=== PATIENT | male | born 1925 | race Hispanic/Latino ===

== ENCOUNTER 2016-12-02 14:07 | Inpatient (IN) | payer BC, MEDICARE ==
--- NOTE | 2016-12-02 14:46 | ED PDOC ---
Arrival/HPI - General Chief Complaint: Lower Extremity Problem/Injury Time Seen by Provider: 12/02/16 14:25 Historian: Patient, Family - History of Present Illness Narrative History of Present Illness (Text): 12/02/16 14:46 A 89 year old male, whose past medical history includes dementia, 'clotting disorder' on eliquis and hypertension, presents to the emergency department complaining of bilateral lower extremity swelling. Patient notes difficulty ambulating due to swelling. Family reports patients baseline consists of dyspnea on exertion. Patient denies any fever, chills, nausea, vomiting, abdominal pain, chest pain or any other complaints. Past Medical History - Provider Review Nursing Documentation Reviewed: Yes - Infectious Disease Hx of Infectious Diseases: None - Cardiac Hx Hypertension: Yes - Pulmonary Hx Pneumonia: Yes - Neurological Hx Dementia: Yes - HEENT Hx HEENT Disorder: Yes - Renal Hx Renal Disorder: No - Endocrine/Metabolic Hx Diabetes Mellitus Type 2: Yes - Hematological/Oncological Hx Blood Transfusions: No Hx Blood Transfusion Reaction: (N/A) - Integumentary Hx Dermatological Disorder: Yes (Skin CA) - Musculoskeletal/Rheumatological Hx Falls: Yes Other/Comment: DVT - Gastrointestinal HX Swallowing Problems: Yes - Genitourinary/Gynecological Hx Reproductive Disorders: No - Psychiatric Hx Depression: Yes Hx Physical Abuse: No Hx Substance Use: No - Surgical History Other/Comment: 2 herniated discs removed 50 yrs ago, lumbar laminectomy, CORRECTED SWALLOWING PROBLEM - Anesthesia Hx Anesthesia: No Hx Anesthesia Reactions: No Hx Malignant Hyperthermia: No - Suicidal Assessment Feels Threatened In Home Enviroment: No Family/Social History - Physician Review Nursing Documentation Reviewed: Yes Family/Social History: No Known Family HX Smoking Status: Never Smoked Hx Alcohol Use: No Hx Substance Use: No Allergies/Home Meds Allergies/Adverse Reactions: Allergies No Known Allergies Allergy (Verified 12/02/16 14:09) Home Medications: Home Meds Medication Instructions Recorded Confirmed Fluoxetine HCl 40 mg PO DAILY 08/01/14 12/02/16 buPROPion SR [Wellbutrin SR 150 MG] 300 mg PO DAILY 08/01/14 12/02/16 Apixaban [Eliquis] 2.5 mg PO BID 12/02/16 12/02/16 Donepezil [Aricept] 5 mg PO DAILY 12/02/16 12/02/16 Glipizide [Glucotrol] 10 mg PO DAILY 12/02/16 12/02/16 Pioglitazone [Actos] 15 mg PO DAILY 12/02/16 12/02/16 Pregabalin [Lyrica] 50 mg PO BID 12/02/16 12/02/16 risperiDONE [RisperDAL Tab] 1 ng PO HS 12/02/16 12/02/16 Physical Exam - Physical Exam Narrative Physical Exam (Text): - Review of Systems Constitutional: Normal. absent: Fatigue, Weight Change, Fevers Eyes: Normal ENT: denies sore throat, denies tristhmus Respiratory: (+) WINKLER absent: Cough, Sputum Cardiovascular: absent: Chest Pain, Palpitations, Syncope Gastrointestinal: Normal. absent: Abdominal Pain, Diarrhea, Nausea, Vomiting Genitourinary: Normal. absent: Dysuria, Frequency, Hematuria Musculoskeletal: (+) Bilateral lower extremity swelling absent: Arthralgias, Back Pain, Neck Pain Skin: no rashes, no erythema Neurological: absent: Focal Weakness Endocrine: Normal Hemo/Lymphatic: Normal Psychiatric: No suicidal or homicidal ideations Physical exam Patient appears age appropriate in no distress, speaking full sentences without difficulty - Systems Exam Head: Present: Atraumatic, Normocephalic Pupils: Present: PERRL Extroacular Muscles: Present: EOMI Conjunctiva: Present: Normal Mouth: Present: Moist Mucous Membranes Neck: Present: Normal Range of Motion. No: MIDLINE TENDERNESS, Paraspinal Tenderness Respiratory/Chest: Present: Clear to Auscultation, Good Air Exchange. No: Respiratory Distress, Accessory Muscle Use, Tachypneic Cardiovascular: Present: Regular Rate and Rhythm, Normal S1, S2, Peripheal Pulses Present. No: Murmurs Abdomen: Present: Normal Bowel Sounds. No: Tenderness, Distention, Peritoneal Signs, Rebound, Guarding Back: Present: Normal Inspection. No: Midline Tenderness, Paraspinal Tenderness Upper Extremity: Present: Normal Inspection. No: Cyanosis, Edema Lower Extremity: Present: Bilateral +2 pitting edema, Good capillary refill, Good color No: Asymmetry, Tenderness Neurological: Present: GCS=15, Speech Normal, cranial nerves II through XII fully intact with no cerebellar abnormality, neurosensory fully intact. No focal neurological deficits. Skin: Present: Warm, Dry, Normal Color. No: Rashes Lymphatic: Present: OX3, NI, NC Psychiatric: Present: Alert, not anxious Vital Signs Reviewed: Yes Vital Signs Temp Pulse Resp BP Pulse Ox 12/02/16 14:15 98.2 F 81 16 121/71 95 Temperature: Afebrile Blood Pressure: Normal Pulse: Regular Respiratory Rate: Normal Appearance: Positive for: Well-Appearing, Non-Toxic, Comfortable Pain Distress: None Mental Status: Positive for: Alert and Oriented X 3 Medical Decision Making ED Course and Treatment: 12/02/16 14:46 Impression: A 89 year old male with bilateral lower extremity swelling. Family report chronic dyspnea on exertion. On exam, +2 pitting edema bilaterally with good pulses and color, no asymmetry or tenderness. Differential Diagnosis included but are not limited to: Peripheral vascular disease vs. CHF vs. Renal disease Plan: -- Chest xray -- Duplex lower extremity ultrasound -- Labs -- Reassess and disposition Progress Notes: 12/02/16 17:31 Patient's creatinine normal, BNP unremarkable, x-ray with no acute findings as per radiology read. Discussed with electronics warfare technician, she states that patient has no acute DVTs, however he has chronic DVTs which are much better appearance than before. pt states he is concerned that he is unable to ambulate. Patient's primary physician Dr. Elizondo paged by me, awaiting callback 12/02/16 17:[address] Elizondo in detail, accepted admission to his service (Dr. Fritz's), for inability to walk. Also with Dr. Mahas Oliveira on consult. pt aware of and agrees with plan 12/02/16 18:02 kristopher Tessa, pt's daughter, aware of plan, states will tell family - Lab Interpretations Lab Results: 12/02/16 14:45 12/02/16 14:45 Lab Results 12/02/16 14:45: PT 11.3, INR 1.05, APTT 24.9 12/02/16 14:45: Sodium 140, Potassium 4.7, Chloride 101, Carbon Dioxide 27, Anion Gap 17, BUN 19, Creatinine 0.9, Est GFR ( Amer) > 60, Est GFR (Non- Af Amer) > 60, Random Glucose 253 H, Calcium 9.4, Total Bilirubin 0.7, AST 30, ALT 24, Alkaline Phosphatase 68, NT-Pro-B Natriuret Pep 375, Total Protein 6.6, Albumin 4.0, Globulin 2.6, Albumin/Globulin Ratio 1.5 12/02/16 14:45: WBC 7.1, RBC 4.33, Hgb 14.1, Hct 41.9 L, MCV 96.8, MCH 32.6, MCHC 33.7, RDW 12.5, Plt Count 141, MPV 9.7, Gran % 72.4 H, Lymph % (Auto) 17.7 L, Scott % (Auto) 4.8, Eos % (Auto) 4.8, Baso % (Auto) 0.3, Gran # 5.11, Lymph # 1.3, Scott # 0.3, Eos # 0.3, Baso # 0.02 I have reviewed the lab results: Yes - RAD Interpretation Radiology Orders: 12/02/16 14:47 CHEST PORTABLE [RAD] Stat DUPLEX LOWER EXTRM VEIN BILAT [US] Stat - Scribe Statement The provider has reviewed the documentation as recorded by the Scribe Radha Simon Provider Scribe Attestation: All medical record entries made by the Scribe were at my direction and personally dictated by me. I have reviewed the chart and agree that the record accurately reflects my personal performance of the history, physical exam, medical decision making, and the department course for this patient. I have also personally directed, reviewed, and agree with the discharge instructions and disposition. Disposition/Present on Arrival - Present on Arrival Any Indicators Present on Arrival: Yes History of DVT/PE: Yes History of Uncontrolled Diabetes: Yes Urinary Catheter: No History of Decub. Ulcer: No History Surgical Site Infection Following: None - Disposition Have Diagnosis and Disposition been Completed?: Yes Diagnosis: Ambulatory dysfunction Disposition: HOSPITALIZED Disposition Time: 17:55 Patient Plan: Admission Condition: FAIR Referrals: Reese Stone JD, MD [Primary Care Provider] - Follow up with primary Forms: [employer] (Maltese)
[2016-12-02 15:06] LABS: BASO # 0.02 K/mm3 (0.0-2.0); BASO % 0.3 % (0.0-3.0); EOS # 0.3 (0.0-0.7); EOS % 4.8 % (1.5-5.0); GRAN # 5.11 (1.4-6.5); GRAN % 72.4 % (50.0-68.0); HEMATOCRIT 41.9 % (42.0-52.0); LYMPH # 1.3 (1.2-3.4); LYMPH % 17.7 % (22.0-35.0); MEAN CELL VOLUME 96.8 fl (80.0-105.0); MEAN CORPUSCULAR HEMOGLOBIN 32.6 pg (25.0-35.0); MEAN CORPUSCULAR HGB CONC 33.7 g/dl (31.0-37.0); MEAN PLATELET VOLUME 9.7 fl (7.0-11.0); MONO # 0.3 (0.1-0.6); MONO % 4.8 % (1.0-6.0); RED CELL DISTRIBUTION WIDTH 12.5 % (11.5-14.5); WHITE BLOOD COUNT 7.1 10^3/ul (4.5-11.0)
[2016-12-02 15:15] LABS: INR 1.05 (0.93-1.08); PARTIAL THROMBOPLASTIN TIME 24.9 Seconds (23.7-30.8)
[2016-12-02 15:21] LABS: ALB/GLOB RATIO 1.5 (1.1-1.8); ALKALINE PHOSPHATASE 68 U/L (38-126); ALT/SGPT 24 U/L (7-56); AST/SGOT 30 U/L (17-59); BILIRUBIN,TOTAL 0.7 mg/dL (0.2-1.3); BLOOD UREA NITROGEN 19 mg/dL (7-21); CALCIUM 9.4 mg/dL (8.4-10.5); CARBON DIOXIDE 27 mmol/L (21-33); CHLORIDE 101 mmol/L (98-107); GFR AFRICAN-AMERICAN > 60; GLUCOSE,RANDOM 253 mg/dL (70-110); POTASSIUM 4.7 mmol/L (3.6-5.0); SODIUM 140 mmol/L (132-148); TOTAL PROTEIN 6.6 g/dL (5.8-8.3)
--- NOTE | 2016-12-02 20:01 | RAD ---
HISTORY: cough COMPARISON: No prior. FINDINGS: LUNGS: No active pulmonary disease. PLEURA: No significant pleural effusion identified, no pneumothorax apparent. CARDIOVASCULAR: Normal. Mild aortic tortuosity OSSEOUS STRUCTURES: No significant abnormalities. VISUALIZED UPPER ABDOMEN: Normal. OTHER FINDINGS: None. IMPRESSION: No active disease.
--- NOTE | 2016-12-02 20:02 | US ---
PROCEDURE: Bilateral lower extremity venous duplex Doppler. HISTORY: r/o DVT COMPARISON: 08/15/2016. TECHNIQUE: Bilateral common femoral, superficial femoral, popliteal and posterior tibial veins were evaluated. Flow was assessed with color Doppler, compressibility, assessment of phasic flow and augmentation response. FINDINGS: COMMON FEMORAL VEIN: Right CFV: Unremarkable. Left CFV: There is a chronic nonocclusive thrombus. SUPERFICIAL FEMORAL VEIN: Right SFV: Unremarkable. Left SFV: There is a chronic nonocclusive thrombus. POPLITEAL VEIN: Right Popliteal: Unremarkable. Left Popliteal: There is a chronic nonocclusive thrombus. POSTERIOR TIBIAL VEIN: Right PTV: Unremarkable. Left PTV: Unremarkable. OTHER FINDINGS: None. IMPRESSION: 1. No evidence of deep venous thrombosis in the right lower extremity. 2. 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
[2016-12-02 22:42] VITALS: BMI 24.1
[2016-12-02] MEDS ORDERED: Pneumococcal 23-Valent Vaccine IM ONE (22:42)
[2016-12-02] MEDS: Enoxaparin 60 mg Syringe SC SCH (23:32)
[2016-12-03 06:54] LABS: ALB/GLOB RATIO 1.5 (1.1-1.8); ALKALINE PHOSPHATASE 65 U/L (38-126); ALT/SGPT 26 U/L (7-56); AST/SGOT 26 U/L (17-59); BILIRUBIN,TOTAL 0.7 mg/dL (0.2-1.3); BLOOD UREA NITROGEN 18 mg/dL (7-21); CALCIUM 8.9 mg/dL (8.4-10.5); CARBON DIOXIDE 29 mmol/L (21-33); CHLORIDE 103 mmol/L (98-107); CHOLESTEROL 187 mg/dL (130-200); GFR AFRICAN-AMERICAN > 60; GLUCOSE,RANDOM 114 mg/dL (70-110); POTASSIUM 3.7 mmol/L (3.6-5.0); SODIUM 140 mmol/L (132-148); TOTAL PROTEIN 5.9 g/dL (5.8-8.3)
[2016-12-03 07:04] LABS: TROPONIN I 0.02 ng/mL
[2016-12-03] MEDS: Insulin Reg-LOW-Coverage SC SCH ×4 (08:40→21:51)
[2016-12-03] MEDS: buPROPion SR 150 MG TABLET PO SCH ×2 (09:41→17:09)
[2016-12-03] MEDS: Enoxaparin 60 mg Syringe SC SCH ×2 (09:42→21:52)
--- NOTE | 2016-12-03 12:01 | PN ---
ENDOCRINOLOGY FOLLOWUP NOTE LOCATION: Room #576. SUBJECTIVE: This is an 89-year-old male with recent uncontrolled type 2 diabetes, presenting here with lower extremity swelling and undergoing vascular workup for possible deep vein thrombosis and is now being followed closely for metabolic management. His overall intake is quite variable as per the nursing staff with suboptimal meal portions as noted. His glucose levels are fluctuating, but improved and the latest glucose levels have ranged from 123 to 158 mg/dL. His latest chemistry showed a BUN of 18, sodium 140, potassium 3.7, chloride 103, CO2 of 29, glucose 114, creatinine 0.8. So at this time, we will continue the low-dose oral hypoglycemic drug therapy as given with Glucotrol given as 5 mg p.o. b.i.d. before meals as ordered. We will hold resumption of his outpatient oral hypoglycemic medication such as Actos, especially in the light of lower extremity swelling and possible ischemic heart disease. Moreover, we will also hold off on the metformin, not only because of the very advanced age, but also because of possible underlying congestive cardiomyopathy. We will obtain serial chemistries and supplement accordingly as needed. We will continue the low-dose correction scale using regular insulin as ordered. We will follow. Melissa Cobos MD
[2016-12-04] MEDS: Insulin Reg-LOW-Coverage SC SCH ×4 (07:51→22:41)
[2016-12-04] MEDS: Enoxaparin 60 mg Syringe SC SCH ×2 (09:53→21:45)
[2016-12-04] MEDS: buPROPion SR 150 MG TABLET PO SCH ×2 (09:53→17:46)
--- NOTE | 2016-12-04 12:57 | PN ---
ENDO FOLLOWUP NOTE LOCATION: Room 576. SUBJECTIVE: This is an 89-year-old male with recent uncontrolled type 2 diabetes presenting here with lower extremity edema and currently undergoing cardiac and vascular workup at this time. He is being followed closely now for metabolic management because of recent hyperglycemic accelerations that have improved overnight as noted. His glucose levels have ranged from 122 to 197 mg/dL, was 292 at bedtime last night. His chemistry showed a BUN of 18, sodium 140, potassium 3.7, chloride 113, CO2 of 29, glucose 114 and creatinine 0.8. So, at this time, we will continue the low-dose oral hypoglycemic drug therapy as given with glipizide given as 5 mg p.o. b.i.d. before meals as ordered. We will titrate incrementally as indicated to optimize metabolic control. We will also obtain serial chemistries and supplement accordingly as needed. We will follow with you. Melissa Cobos MD
[2016-12-04] MEDS ORDERED: Iohexol 350 MG/100 ML VIAL ONE (16:33)
--- NOTE | 2016-12-04 17:46 | CT ---
PROCEDURE: CT HEAD WITHOUT CONTRAST. HISTORY: Altered Mental Status COMPARISON: 04/27/2015 TECHNIQUE: Axial computed tomography images were obtained through the head/brain without intravenous contrast. Radiation dose: Total exam DLP = 960.24 mGy-cm. This CT exam was performed using one or more of the following dose reduction techniques: Automated exposure control, adjustment of the mA and/or kV according to patient size, and/or use of iterative reconstruction technique. FINDINGS: HEMORRHAGE: No intracranial hemorrhage. BRAIN: No mass effect or edema. Cortical atrophy, periventricular small vessel disease VENTRICLES: Unremarkable. No hydrocephalus. CALVARIUM: Unremarkable. PARANASAL SINUSES: Unremarkable as visualized. No significant inflammatory changes. MASTOID AIR CELLS: Unremarkable as visualized. No inflammatory changes. OTHER FINDINGS: None. IMPRESSION: No acute intracranial abnormalities. No significant findings to account for the clinical presentation. No significant interval change compared to the prior examination(s).
--- NOTE | 2016-12-04 17:54 | CT ---
PROCEDURE: CT Pelvis with contrast HISTORY: Checking for extension of blood clot COMPARISON: 12/02/2016. Bilateral lower extremity duplex venous sonography. 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 Coronal and sagittal reformats generated. Contrast dose: 100 cc Omnipaque 300 Radiation dose: Total exam DLP = 716.49 mGy-cm. This CT exam was performed using one or more of the following dose reduction techniques: Automated exposure control, adjustment of the mA and/or kV according to patient size, and/or use of iterative reconstruction technique. FINDINGS: BLADDER: Unremarkable. No mass. REPRODUCTIVE ORGANS: Markedly enlarged prostate similar to that seen previously. Prostate impression upon the base of the bladder is a stable finding. VISUALIZED BOWEL: Constipation and fecal impaction or obstruction. PERITONEUM: Unremarkable, as visualized. No free fluid. No free air. LYMPH NODES: Unremarkable. No enlarged lymph nodes. VASCULATURE: Stable position of IVC filter. No evidence of iliac vein or proximal common femoral vein thrombosis. BONES: No fracture or focal lesion. OTHER FINDINGS: None. IMPRESSION: 1. No evidence of pelvic venous thrombosis. 2. No acute findings related to/accounting for the clinical presentation. 3. Additional benign and/or incidental findings described above.
--- NOTE | 2016-12-05 03:47 | PN ---
DATE: 12/04/2016 SUBJECTIVE: This is an 89-year-old white male who was admitted to the emergency room with a background history of hypercoagulable state, factor V Leiden, homozygous, on the long-term anticoagulation, most recently was in the hospital about a year ago with similar situation, but forgot to take the Coumadin and was taking it erratically and within a week of doing so, he developed extensive DVT of both lower extremities, left greater than the right, was admitted, treated with heparin, switched over to Lovenox and then Eliquis eventually, and was sent home. As per the family, he had been taking medicines, but they are not sure he was taking the Eliquis on a regular basis. Apparently after a week ago, he was walking based with a walker and then suddenly middle of the week last week, he had noticed progressive swelling of both lower extremities and with this, it had incapacitated him, he could not even get out of bed. Family brought him to the emergency room with a concern that his blood clot could be coming back or could be worsening, had an IVC filter and the clot could be extending higher up or it could be a newer problem. The patient was admitted through the emergency room and has been started on Lovenox. His leg swelling in the bed has decreased since admission and he had a venous Doppler ultrasound done, but no new was ordered, but based on the fact that he had a hypercoagulable state, CT of the pelvis was also requested, which is going to be done today. PHYSICAL EXAMINATION: GENERAL: The patient is examined in bed. The patient is awake, alert, and oriented. He is able to eat and swallow properly. The patient did have rational conversation with me. VITAL SIGNS: T-max is 98.4, pulse is 71, blood pressure is 108/71, respirations 20, O2 sat is 92% on room air. HEENT: Head is normocephalic and atraumatic. Conjunctivae pale. Sclerae are anicteric. Pupils are equally reactive to light and accommodation. Examination of the oropharynx reveals no oropharyngeal lesions. NECK: Supple. There is no adenopathy. No jugular venous distention noted. HEART: Reveals PMI to be in the fifth intercostal space inside the midclavicular line. S1 and S2 are normal. No gallop or murmur is heard. LUNGS: Clear to percussion and auscultation. ABDOMEN: Soft and nontender. Bowel sounds are normal. No rebound, rigidity, or guarding is noted. EXTREMITIES: The patient has edema in both lower extremities, left greater than the right, but the edema is now substantially decreased, has been lying in bed. LABORATORY DATA: From yesterday was reviewed. Electrolytes are unremarkable. Sugars have been still ranging between 114-292, which is being monitored by Dr. Melissa Cobos and being adjusted as we speak. Electrolytes, LFTs, and another parameters on the blood test have been within normal limits. The patient's blood sugars have been fluctuating between 123-199, highest today at 11:55 was 202. MEDICATIONS: The patient's medications were reviewed. He is on Aricept 5 mg at bedtime, Glucotrol 5 mg p.o. twice a day, insulin coverage, Lovenox 60 q. 12 hours, Prozac 40 mg daily, Risperdal 1 mg daily, Wellbutrin 150 mg p.o. b.i.d. His medication for Actos has been withheld because of the concern that he had with Actos worsening his congestive heart failure. Spoken with Dr. Melissa Cobos, the patient will continue low-dose hypoglycemic therapy with glipizide 5 mg b.i.d. and then gradually optimize to get better metabolic control. PLAN: I spoke in detail to Tessa, his daughter and his healthcare proxy. They are going to get a CT of the pelvis today and he is also getting a CT of the head today. He will follow up with Dr. Garcias regarding further treatment and recommendations for his deconditioning, more importantly his inability to get up around and walk to make sure we are not ruling out anything neurologic at this point in time. Routine post-exam instructions have been given to the patient. Time spent with the patient and discussing with the family an hour collating all the facts and giving all the reports to the family. Bernadette Elizondo MD
[2016-12-05 07:18] LABS: BASO # 0.01 K/mm3 (0.0-2.0); BASO % 0.2 % (0.0-3.0); EOS # 0.3 (0.0-0.7); EOS % 5.7 % (1.5-5.0); GRAN # 3.23 (1.4-6.5); GRAN % 57.8 % (50.0-68.0); HEMATOCRIT 38.5 % (42.0-52.0); LYMPH # 1.5 (1.2-3.4); LYMPH % 27.5 % (22.0-35.0); MEAN CELL VOLUME 95.1 fl (80.0-105.0); MEAN CORPUSCULAR HEMOGLOBIN 31.9 pg (25.0-35.0); MEAN CORPUSCULAR HGB CONC 33.5 g/dl (31.0-37.0); MEAN PLATELET VOLUME 9.4 fl (7.0-11.0); MONO # 0.5 (0.1-0.6); MONO % 8.8 % (1.0-6.0); RED CELL DISTRIBUTION WIDTH 12.6 % (11.5-14.5); WHITE BLOOD COUNT 5.6 10^3/ul (4.5-11.0)
[2016-12-05 07:28] LABS: ALB/GLOB RATIO 1.5 (1.1-1.8); ALKALINE PHOSPHATASE 65 U/L (38-126); ALT/SGPT 39 U/L (7-56); AST/SGOT 22 U/L (17-59); BILIRUBIN,TOTAL 0.7 mg/dL (0.2-1.3); BLOOD UREA NITROGEN 17 mg/dL (7-21); CALCIUM 8.7 mg/dL (8.4-10.5); CARBON DIOXIDE 28 mmol/L (21-33); CHLORIDE 102 mmol/L (95-110); GFR AFRICAN-AMERICAN > 60; GLUCOSE,RANDOM 125 mg/dL (70-110); POTASSIUM 3.7 mmol/L (3.6-5.0); SODIUM 140 mmol/L (132-148); TOTAL PROTEIN 6.1 g/dL (5.8-8.3)
[2016-12-05 07:51] VITALS: TEMP 97.8
--- NOTE | 2016-12-05 08:18 | CON ---
DATE: 12/04/2016 HISTORY OF PRESENT ILLNESS: An 89-year-old male with past medical history of dementia and hypertension, came to the emergency room with bilateral leg weakness, has difficulty ambulating for the past two weeks. Denies any headache. No dizziness. No blurring vision. No double vision. No numbness, tingling in arms, legs or feet. PAST MEDICAL HISTORY: As above of dementia, hypertension and clotting disorder for which the patient was on Eliquis. PHYSICAL EXAMINATION: HEENT: Normocephalic, atraumatic. NECK: Supple. NEURO: Alert, awake, oriented to self and place. No aphasia. Cranial nerves II through XII were tested. Pupils reactive. EOMs intact. Visual field full. No facial asymmetry. Tongue midline. Motor examination, moves all the extremities spontaneously, upper more than the lower. Deep tendon reflexes are 1+. Both plantars are downgoing. Sensory appears intact. Cerebellar, gait deferred. IMPRESSION: Gait problem possibly secondary to the weakness of the legs. 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 We will follow it up. I ordered a CAT scan of the head without contrast. Further management after results of above test and continue physical therapy. Tong Garcias MD
[2016-12-05] MEDS: Insulin Reg-LOW-Coverage SC SCH ×4 (08:19→21:20)
--- NOTE | 2016-12-05 08:33 | HP ---
HISTORY OF PRESENT ILLNESS: This is an 89-year-old white male who is known to me and has been under my care for the last 30 years. 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 He has had an IVC filter put in many years ago and had been on Coumadin, recently switched over to Eliquis, and had been on Eliquis for about a year now since he was in the hospital in 2016. The patient, during that admission was admitted for acute swelling of the left lower extremity, had not taken his Coumadin for about a week and a half when he developed a blood clot. He was switched over from heparin to Coumadin and then finally to Eliquis once the Eliquis got approved. The patient apparently was ambulatory at home until about the middle of last week prior to admission when he had noticed increased swelling of the both lower extremities and he could not even get out of bed. As per his daughter, Tessa who is also my patient, he was ambulatory, albeit with assistance and using a walker as he had seen the neurologist last week in his office. 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 Baumann and was sent over to who was endoscopically able to clip the diverticulum at [facility]. 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 He was brought to the emergency room with progressive leg swelling and difficulty in ambulation and concern that the patient could fall. The family was concerned that his DVT could be recurring or the DVT could be extending beyond the IVC filter who has had the filter for many years. REVIEW OF SYSTEMS: The patient denies any history of fevers or chills. No history of nausea or vomiting. No history of hematochezia. Sudden onset of lower extremity swelling. No history of cough. No history of hemoptysis. No history of fevers or chills. MEDICATIONS: The patient's medications have been prescribed recently by another MD as Dr. Adorno was his family doctor, he is no longer taking care of him. PAST MEDICAL HISTORY: As following also. The patient is a diabetic, congestive heart failure, early cognitive issues. The patient has difficulty in ambulation, especially with activities of daily living and uses a walker. SOCIAL HISTORY: The patient had never smoked. No use of alcohol or any substances. FAMILY HISTORY: Significant for the fact that several of his children have cancers, though this is from his 's side as his family's side everybody seems to be doing well. PHYSICAL EXAMINATION: GENERAL: The patient is examined in the bed. VITAL SIGNS: Stable. T-max is 98.4, pulse is 81, respirations are 16, blood pressure is 121/71, and pulse oximetry is 95% on room air. HEENT: Head is normocephalic and atraumatic. Conjunctivae are pink. Sclerae are anicteric. Pupils are equally reactive to light and accommodation. Examination of the oropharynx reveals no oropharyngeal lesions. NECK: Supple. There is no adenopathy. No jugular venous distention noted. BACK: Examination reveals no paraspinal or mid spine tenderness. CHEST: Unremarkable. LUNGS: Clear to percussion and auscultation without any adventitious sounds. CARDIOVASCULAR: Exam of the cardiovascular system reveals PMI to be in fifth intercostal space inside the midclavicular line. S1 and S2 normal. No gallops or murmurs heard. ABDOMEN: Soft and nontender. Liver and spleen are nonpalpable. No rebound rigidity, or guarding is noted. EXTREMITIES: There is no cyanosis, clubbing, or edema in the upper extremities. Exam of the lower extremities, the patient has bilateral edema, left greater than the right with good capillary refill without any tenderness. NEUROLOGIC: Reveals higher functions to be normal. No focal deficits were discernible. The patient is unable to get up and walk, as he says there is no strength in his legs. SKIN: Skin turgor is normal. No skin lesions are noted. No rashes are noted. LYMPHATICS: Examination of the lymph nodes reveals no adenopathy in the neck, axilla and groin. PSYCHIATRIC: The patient is awake, alert, oriented and is perfectly aware of his surroundings and he remembers my name and we had a long discussion about his personal history. ASSESSMENT NOTES AND PLAN: The patient with a hypercoagulable state on blood thinners including Eliquis till recently, suddenly developed worsening lower extremity edema, one concern that would have would be progression of his deep venous thrombosis quarterly beyond the vena cava to involve the iliac veins of the femoral veins proximally. The other possibility is accounts of a new disease in this elderly male that may be presenting sudden onset of edema, though it is unlikely as about weak and half ago apparently the patient was doing well. The other possibility is the patient may have been taking his Eliquis medicine erratically and that makes him prone to develop clots as he is hypercoagulable. PLAN: The patient had a stat venous duplex studies of the both lower extremities which I reviewed with Dr. Ruddy Oliveira. It looks like he may have a clot that does not appear to be acute at this point in time, but given the fact that swelling is worse, we are going to start him on Lovenox 60 b.i.d. and then put him back on Eliquis once we have further details. I plan to get a CT of the pelvis as well so that is can evaluate to see if he needs any other procedures done to prevent further deterioration. The filter that he has had is a non-retrievable filter that has been in for several years at this point in time. The patient has an enlarged prostate, which we are not doing anything at this point in time. If need be, he will see Dr. Nicolas and Dr. Rose as an outpatient. The patient's medications were reviewed with the family and they are going to hold back on some of the diabetic medicine and have Dr. Melissa Cobos, the customer manager review her. We are also going to get Neurology to see him because of difficulty in ambulation. Apparently, he had seen the doctor just a week prior to admission. Today, his white count is 7.1, hemoglobin is 14, hematocrit is 41, and platelet count is 141,000. Sodium is 140, potassium is 4.7, chloride is 101, CO2 is 27, BUN of 19, creatinine of 0.9, and blood sugar is 253. We are going to hold back on the Actos as this may contribute to his congestive heart failure. Routine post exam instructions have been given. I spoke to the ER physician, we plan on keeping the patient overnight and then see which direction we will proceed. The patient may be a candidate for subacute rehab in order for him to get back to the level where he could do his activities of daily living without major issues. In this elderly male, we do not want to do anything more aggressive if things should improve on their own. Routine post exam instructions have been given to the patient. Time spent with the patient more than one hour in correlating facts and also talking to the various family members. Bernadette Elizondo MD
[2016-12-05] MEDS: POLYETHYLENE GLYCOL 3350 17 GM/Dose PACKET PO SCH (09:59)
[2016-12-05] MEDS: buPROPion SR 150 MG TABLET PO SCH ×2 (09:59→17:36)
[2016-12-05] MEDS: Enoxaparin 60 mg Syringe SC SCH (10:03)
--- NOTE | 2016-12-05 14:24 | CP.PCM.PN ---
<Jewell Lind - Last Filed: 12/05/16 16:11> Subjective - Date & Time of Evaluation Date of Evaluation: 12/05/16 Time of Evaluation: 14:20 - Subjective Subjective: Neurology Progress Note for Mia Hartmann PGY2 Patient seen and examined at bedside. There were no acute overnight events as per nursing. Patient was resting comfortably in bed this am. He reports feeling well today. He denies vision changes, CP, SOB, n/v/d, fever/chills. He does report having numbness/tingling on the bottom of his feet which has been chronic. Objective - Vital Signs/Intake and Output Vital Signs (last 24 hours): Temp Pulse Resp BP Pulse Ox 97.8 F 60 16 120/82 97 12/05/16 07:30 12/05/16 07:30 12/05/16 07:30 12/05/16 07:30 12/05/16 07:30 Intake and Output: 12/05/16 12/05/16 06:59 18:59 Intake Total 480 Output Total 650 Balance -170 - Medications Medications: Current Medications Apixaban (Eliquis) 5 mg PO BID [facility] PRN Reason: Protocol Bupropion HCl (Wellbutrin Sr 150 Mg) 150 mg PO BID [facility] Last Admin: 12/05/16 09:59 Dose: 150 mg Donepezil HCl (Aricept) 5 mg PO HS [facility] Last Admin: 12/04/16 21:45 Dose: 5 mg Fluoxetine HCl (Prozac) 40 mg PO DAILY [facility] Last Admin: 12/05/16 09:59 Dose: 40 mg Glipizide (Glucotrol) 5 mg PO ACBD [facility] Last Admin: 12/05/16 08:19 Dose: 5 mg Insulin Human Regular (Humulin R Low) 0 units SC ACHS [facility] PRN Reason: Protocol Last Admin: 12/05/16 11:48 Dose: Not Given Polyethylene Glycol (Miralax) 17 gm PO DAILY [facility] Last Admin: 12/05/16 09:59 Dose: 17 gm Risperidone (Risperdal Tab) 1 mg PO DAILY [facility] PRN Reason: Protocol Last Admin: 12/05/16 09:59 Dose: 1 mg - Labs Labs: 12/05/16 06:45 12/05/16 06:45 PT 11.3 Seconds (9.9-11.8) 12/02/16 14:45 INR 1.05 (0.93-1.08) 12/02/16 14:45 APTT 24.9 Seconds (23.7-30.8) 12/02/16 14:45 - Constitutional Appears: No Acute Distress - Head Exam Head Exam: ATRAUMATIC, NORMAL INSPECTION, NORMOCEPHALIC - Eye Exam Eye Exam: Normal appearance, PERRL Pupil Exam: NORMAL ACCOMODATION, PERRL - ENT Exam ENT Exam: Mucous Membranes Moist - Respiratory Exam Respiratory Exam: Clear to Ausculation Bilateral, NORMAL BREATHING PATTERN. absent: Rales, Rhonchi, Wheezes - Cardiovascular Exam Cardiovascular Exam: REGULAR RHYTHM, +S1, +S2. absent: Gallop, Rubs, Murmur - GI/Abdominal Exam GI & Abdominal Exam: Soft, Normal Bowel Sounds. absent: Rigid, Tenderness, Mass , Rebound - Extremities Exam Extremities Exam: Normal Inspection, Pedal Edema (trace bilaterally ). absent: Calf Tenderness - Neurological Exam Neurological Exam: Alert, Awake, CN II-XII Intact, Oriented x3 Neuro motor strength exam: Left Upper Extremity: 5, Right Upper Extremity: 5, Left Lower Extremity: 5, Right Lower Extremity: 5 - Psychiatric Exam Psychiatric exam: Normal Affect, Normal Mood - Skin Skin Exam: Dry, Normal Color, Warm Assessment and Plan - Assessment and Plan (Free Text) Assessment: This is an 89Y M with PMH HTN, factor V leiden, dementia, DVT, uncontrolled DM who was admitted for difficulty ambulating. Head CT was negative and pelvic CT was negative for acute pathology. Duplex U/S was negative for DVT. Dr. Garcias evaluated patient for similar episode of difficulty ambulating in 2016. This can be secondary to diabetic neuropathy from poorly controlled DM. Plan: - HgbA1c: 7.9 - Maintain euglycemia (140-180s) - Gabapentin 100mg TID for peripheral neuropathy - Physical therapy/occupational therapy - Pt can follow up with Dr. Garcias as outpatient Recommend [facility]. Thank you for this consultation. No further neurological work up is indicated. Will sign off. Please re-consult if needed. Case seen, discussed and reviewed with Dr. Garcias. Mia Lind PGY2 <Marquez Garcias - Last Filed: 12/05/16 16:28> Objective - Vital Signs/Intake and Output Vital Signs (last 24 hours): Temp Pulse Resp BP Pulse Ox 97.8 F 60 16 120/82 97 12/05/16 07:30 12/05/16 07:30 12/05/16 07:30 12/05/16 07:30 12/05/16 07:30 Intake and Output: 12/05/16 12/05/16 06:59 18:59 Intake Total 480 480 Output Total 650 400 Balance -170 80 - Medications Medications: Current Medications Apixaban (Eliquis) 5 mg PO BID NEELIMA PRN Reason: Protocol Bupropion HCl (Wellbutrin Sr 150 Mg) 150 mg PO BID [facility] Last Admin: 12/05/16 09:59 Dose: 150 mg Donepezil HCl (Aricept) 5 mg PO HS [facility] Last Admin: 12/04/16 21:45 Dose: 5 mg Fluoxetine HCl (Prozac) 40 mg PO DAILY [facility] Last Admin: 12/05/16 09:59 Dose: 40 mg Gabapentin (Neurontin) 100 mg PO TID [facility] PRN Reason: Protocol Glipizide (Glucotrol) 10 mg PO ACBD [facility] Insulin Human Regular (Humulin R Low) 0 units SC ACHS [facility] PRN Reason: Protocol Last Admin: 12/05/16 11:48 Dose: Not Given Polyethylene Glycol (Miralax) 17 gm PO DAILY [facility] Last Admin: 12/05/16 09:59 Dose: 17 gm Risperidone (Risperdal Tab) 1 mg PO DAILY [facility] PRN Reason: Protocol Last Admin: 12/05/16 09:59 Dose: 1 mg - Labs Labs: 12/05/16 06:45 12/05/16 06:45 PT 11.3 Seconds (9.9-11.8) 12/02/16 14:45 INR 1.05 (0.93-1.08) 12/02/16 14:45 APTT 24.9 Seconds (23.7-30.8) 12/02/16 14:45 Attending/Attestation - Attestation I have personally seen and examined this patient.: Yes I have fully participated in the care of the patient.: Yes I have reviewed all pertinent clinical information, including history, physical exam and plan: Yes
--- NOTE | 2016-12-05 15:14 | PN ---
DATE: ENDOCRINOLOGY FOLLOWUP NOTE LOCATION: Room 576. This is an 89-year-old male with recent uncontrolled type 2 diabetes, presenting here with extremes of glycemic fluctuations and concomitant lower extremity swelling and edema and now undergoing cardiac and vascular workup as noted. More over he also has difficulty with ambulation and also undergoing neurological workup and management. His latest glucose values today are fluctuating ranging from 126 to 207 mg/dL. It was 199 to 255 at bedtime last night. The latest chemistry showed a BUN of 17, sodium 140, potassium 3.7, chloride 102, CO2 of 28, glucose 125 and creatinine 0.8. So at this time, we will continue the oral hypoglycemic drug regimen as given and we will modify to higher dose of 10 mg p.o. b.i.d. before meals as given. We will continue the low-dose correction scale using regular insulin as ordered. We will also obtain serial chemistries and supplement accordingly as needed. We will hold off basal insulin at this time because of the variability of his oral intake as noted. We will follow and advise accordingly. Melissa Cobos MD
--- NOTE | 2016-12-05 21:25 | CP.PCM.PN ---
Subjective - Date & Time of Evaluation Date of Evaluation: 12/05/16 Time of Evaluation: 21:23 - Subjective Subjective: Medicine progress note for Dr. Elizondo's service Patient seen and examined at bedside. No acute overnight events or new complaints reported. Denies cp, palpitations, SOB. Objective - Vital Signs/Intake and Output Vital Signs (last 24 hours): Temp Pulse Resp BP Pulse Ox 97.8 F 66 18 118/73 97 12/05/16 16:27 12/05/16 16:27 12/05/16 16:27 12/05/16 16:27 12/05/16 16:27 Intake and Output: 12/05/16 12/06/16 18:59 06:59 Intake Total 480 Output Total 400 Balance 80 - Medications Medications: Current Medications Apixaban (Eliquis) 5 mg PO BID [facility] PRN Reason: Protocol Last Admin: 12/05/16 17:36 Dose: 5 mg Bupropion HCl (Wellbutrin Sr 150 Mg) 150 mg PO BID [facility] Last Admin: 12/05/16 17:36 Dose: 150 mg Donepezil HCl (Aricept) 5 mg PO HS [facility] Last Admin: 12/05/16 21:21 Dose: 5 mg Fluoxetine HCl (Prozac) 40 mg PO DAILY [facility] Last Admin: 12/05/16 09:59 Dose: 40 mg Gabapentin (Neurontin) 100 mg PO TID [facility] PRN Reason: Protocol Last Admin: 12/05/16 17:35 Dose: 100 mg Glipizide (Glucotrol) 10 mg PO ACBD [facility] Last Admin: 12/05/16 16:37 Dose: 10 mg Insulin Human Regular (Humulin R Low) 0 units SC ACHS [facility] PRN Reason: Protocol Last Admin: 12/05/16 21:20 Dose: Not Given Polyethylene Glycol (Miralax) 17 gm PO DAILY [facility] Last Admin: 12/05/16 09:59 Dose: 17 gm Risperidone (Risperdal Tab) 1 mg PO DAILY [facility] PRN Reason: Protocol Last Admin: 12/05/16 09:59 Dose: 1 mg - Labs Labs: 12/05/16 06:45 12/05/16 06:45 PT 11.3 Seconds (9.9-11.8) 12/02/16 14:45 INR 1.05 (0.93-1.08) 12/02/16 14:45 APTT 24.9 Seconds (23.7-30.8) 12/02/16 14:45 - Constitutional Appears: No Acute Distress - Head Exam Head Exam: ATRAUMATIC, NORMAL INSPECTION, NORMOCEPHALIC - Eye Exam Eye Exam: EOMI, PERRL - ENT Exam ENT Exam: Mucous Membranes Moist - Respiratory Exam Respiratory Exam: Clear to Ausculation Bilateral. absent: Rales, Rhonchi, Wheezes - Cardiovascular Exam Cardiovascular Exam: RRR, +S1, +S2. absent: Gallop, Rubs, Murmur - GI/Abdominal Exam GI & Abdominal Exam: Soft. absent: Distended, Firm, Guarding, Rigid, Tenderness , Rebound - Neurological Exam Neurological Exam: Alert, Awake, Oriented x3 - Psychiatric Exam Psychiatric exam: Normal Affect, Normal Mood - Skin Skin Exam: Dry, Intact, Normal Color, Warm Assessment and Plan - Assessment and Plan (Free Text) Plan: 89yo male with history of factor V leiden mutation, DVT's of both lower extremities s/p IVC filter placement and long-term anticoagulation presents with lower extremity swelling 1. 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 DM type 2 -Continue glipizide, low dose insulin sliding scale -consistent carb diet -fingersticks achs -endo consulted - Dr. Cobos 3. Depression/Anxiety -Continue home prozac, wellbutrin, risperdal, 4. GI/DVT Prophylaxis -protonix/eliquis 5. Disposition -Discussed with case management regarding placement in [facility] due to deconditioning Patient seen and case discussed with attending, Dr. Elizondo
[2016-12-06 07:52] VITALS: BP 134/79; PULSE 75; RESP 20; O2SAT 94
[2016-12-06] MEDS: Insulin Reg-LOW-Coverage SC SCH ×2 (08:06→11:50)
[2016-12-06] MEDS: POLYETHYLENE GLYCOL 3350 17 GM/Dose PACKET PO SCH (09:28)
[2016-12-06] MEDS: buPROPion SR 150 MG TABLET PO SCH (09:29)
[2016-12-06] MEDS ORDERED: Influenza Vaccine 60 mcg/0.5 mL SYR (4YR UP) IM ONE (15:03)
--- NOTE | 2016-12-06 15:58 | PN ---
ENDO FOLLOWUP NOTE LOCATION: In room 576. SUBJECTIVE: This is an 89-year-old male with recent uncontrolled type 2 diabetes, now being followed closely for metabolic management. His glycemic levels are fluctuating, but much improved at this time. The latest glucose levels have ranged today from 121 to 183 and 224 mg/dL. His latest chemistry shows a BUN of 17, sodium 140, potassium 3.7, chloride 102, CO2 of 28, glucose 125 and creatinine 0.8, so at this time we will continue the same oral hypoglycemic drug therapy as given with glipizide given as 10 mg b.i.d. before meals as modified and ordered for today. We will also continue the low-dose correction scale insulin, regular insulin as ordered. We will titrate the meds as indicated to optimize metabolic control. We will obtain serial chemistry and supplement accordingly as needed. We will follow with you. Melissa Cobos MD
== END 2016-12-06 17:04 | DRG 74 ==
LOC: ED 14:07 → ERH 17:55 → 5RSO 19:11
PROVIDERS: ADMIT Family Medicine; ATTEND Family Medicine
DX: E11.42 Type 2 diabetes mellitus with diabetic polyneuropathy (principal); D68.51 Activated protein C resistance; E11.65 Type 2 diabetes mellitus with hyperglycemia; I11.0 Hypertensive heart disease with heart failure; I50.9 Heart failure, unspecified; F03.90 Unspecified dementia, unspecified severity, without behavioral disturbance, psychotic disturbance, mood disturbance, and anxiety; R26.2 Difficulty in walking, not elsewhere classified; F32.9 Major depressive disorder, single episode, unspecified; F41.9 Anxiety disorder, unspecified; Z79.01 Long term (current) use of anticoagulants; Z79.84 Long term (current) use of oral hypoglycemic drugs; Z86.718 Personal history of other venous thrombosis and embolism